=== PATIENT | female | born 1975 | race Caucasian/White ===

== ENCOUNTER → 2018-03-23 19:04 | Outpatient (CLI) | payer OTHER, SELFPAY ==
--- NOTE | 2018-03-23 19:04 | DT_ITS ---
This patient was seen during an EMR downtime March 16, 2018 - March 23, 2018. This patient may have a combination of paper and electronic documentation or all paper documentation. All documentation is viewable within the e-chart portion of [employer] for each patient visit.
[2018-04-01 20:08] LABS: HPV Genotype 16, Aptima Positive (Negative)
[2018-04-02 13:17] LABS: HPV APTIMA, High Risk Positive (Negative); HPV Genotype 18,45 Aptima Negative (Negative)
== END ==
PROVIDERS: Visit Provider Obstetrics & Gynecology
DX: Z12.4 Encounter for screening for malignant neoplasm of cervix (principal)
CPT/HCPCS: 88175; G0145